=== PATIENT | female | born 1985 | race Caucasian/White ===

== ENCOUNTER 2016-12-05 00:56 | Inpatient (IN) | payer OTHER ==
[2016-12-05 01:40] LABS: APPEARANCE,URINE SLIGHTLY-CLOUDY; BILIRUBIN,URINE NEGATIVE (NEGATIVE); GLUCOSE, URINE NEGATIVE (NEGATIVE); KETONES,URINE NEGATIVE (NEGATIVE); LEUKOCYTE ESTERASE,URINE NEGATIVE (NEGATIVE); NITRITE,URINE NEGATIVE (NEGATIVE); PROTEIN,URINE NEGATIVE (NEGATIVE); URINE SPECIFIC GRAVITY 1.009; UROBILINOGEN,URINE NEGATIVE mg/dL (<2.0)
[2016-12-05 01:59] LABS: URINE BARBITURATES SCREEN NEGATIVE; URINE METHADONE SCREEN NEGATIVE; URINE OPIATES LOW NEGATIVE; URINE PHENCYCLIDINE SCREEN NEGATIVE
[2016-12-05] MEDS ORDERED: RINGERS SOLUTION,LACTATED 1,000 ML IV PRN (02:11)
[2016-12-05] MEDS ORDERED: MISOPROSTOL 0.2 MG TABLET ONE (02:24)
[2016-12-05] MEDS ORDERED: LIDOCAINE 1% INJ-PF (10 MG/ML) 30 ML SDV ONE (02:24)
[2016-12-05] MEDS ORDERED: OXYTOCIN/NORMAL SALINE 20 UNIT/1,000 ML RTUINJ ONE (02:24)
[2016-12-05 03:34] LABS: ABSOLUTE BASOPHILS # (AUTO) 0.1 10^3/uL (0.0-0.2); ABSOLUTE EOSINOPHILS # (AUTO) 0.1 10^3/uL (0.0-0.6); ABSOLUTE LYMPHOCYTES (AUTO) 1.6 10^3/uL (0.5-4.7); ABSOLUTE MONOCYTES (AUTO) 0.6 10^3/uL (0.1-1.4); ABSOLUTE NEUT (AUTO) 10.3 10^3/uL (1.7-8.2); BASOPHILS % (AUTO) 0.4 % (0-2); EOSINOPHILS % (AUTO) 0.6 % (0-6); HEMATOCRIT 32.2 % (36.0-47.0); HEMOGLOBIN 10.8 g/dL (12.0-15.5); HGB HCT DIFFERENCE 0.2; LYMPHOCYTES % (AUTO) 12.9 % (13-45); MEAN CORPUSCULAR HGB CONC 33.5 g/dL (32.0-36.0); MEAN CORPUSCULAR VOLUME 89 fl (80-97); MONOCYTES % (AUTO) 4.7 % (3-13); RED CELL DISTRIBUTION WIDTH 13.3 % (11.5-14.0); SEGMENTED NEUTROPHILS % (AUTO) 81.4 % (42-78); WHITE BLOOD COUNT 12.7 10^3/uL (4.0-10.5)
--- NOTE | 2016-12-05 03:48 | Delivery Summary ---
Del Sum A-C Datetime Report Generated by CPN: 12/05/2016 03:47 DELIVERY PERSONNEL DELIVERY PERSONNEL: [id number] Delivery Doctor:: Twin Morfin DO Labor and Delivery Nurse:: Sia Peters RNpropulsion systems engineer Nurse:: Olena Hussein RN Field Project Manager:: Kelley Parisi RN Nursery Nurse:: Jhoana Elaine RN Nursery Nurse:: Reshma Garcia RN MSN Furniture Repair Technician/MEDICAL RADIATION THERAPIST: Helen Vines CNA Additional Personnel: : Yamila Baires RN MATERNAL INFORMATION Delivery Anesthesia: None Medications After Delivery: Pitocin Drip 20 Units/1000ml NSS Estimated Blood Loss (ml): 150 Maternal Complications: Precipitous Labor (<3hrs) Provider Comments: of viable female infant in OA position Placenta delievered spontaneous and intact with 3v cord, short cord approx 11 inches Fundus firm LABOR SUMMARY EDC: 01/16/2017 00:00 No. Babies in Womb: 1 Attempted: No Labor Anesthesia: None LABOR INFORMATION Reason for Induction: Not Applicable Onset of Labor: 12/04/2016 23:30 Complete Dilatation: 12/05/2016 02:17 Oxytocin: N/A Group B Beta Strep: Unknown Antibiotics # of Doses: 0 Steroids Given: None Reason Steroids Not Administered: Not Applicable MEMBRANES Membranes Rupture Method: Artificial Rupture of Membranes: 12/05/2016 02:28 Length of Rupture (hr): 0.22 Amniotic Fluid Color: Clear Amniotic Fluid Amount: Small Amniotic Fluid Odor: None STAGES OF LABOR Stage 1 hr: 2 Stage 1 min: 47 Stage 2 hr: 0 Stage 2 min: 24 Stage 3 hr: 0 Stage 3 min: 5 Total Time in Labor hr: 3 Total Time in Labor min: 16 VAGINAL DELIVERY Episiotomy: None Laceration Extension: First Degree Laceration Type: Perineal Laceration Repair: Yes Laceration Repair Note: Repaired with 2-0 chromic in usual fashion with good hemostasis Sponge Count Correct: N/A Sharps Count Correct: N/A CSECTION DELIVERY Primary Indication: N/A Secondary Indication: N/A CSection Incidence: N/A Labor: N/A Elective: N/A CSection Incision: N/A BABY A INFORMATION Delivery Date/Time: 12/05/2016 02:41 Method of Delivery: Vaginal Born in Route : No : N/A Forceps: N/A Vacuum Extraction: N/A Shoulder Dystocia : No PRESENTATION/POSITION BABY A Presentation: Cephalic Cephalic Presentation: Vertex Vertex Position: Left Occipital Anterior Breech Presentation: N/A PLACENTA INFORMATION BABY A Placenta Delivery Time : 12/05/2016 02:46 Placenta Method of Delivery: Spontaneous Placenta Status: Delivered SCORES BABY A Heart Rate 1 min: >100 bpm Resp Effort 1 min: Good Cry Reflex Irritability 1 min: Cough or Sneeze or Pulls Away Muscle Tone 1 min: Active Motion Color 1 min: Blue/Pale Resuscitation Effort 1 min: N/A SCORE 1 MIN: 8 Heart Rate 5 min: >100 bpm Resp Effort 5 min: Good Cry Reflex Irritability 5 min: Cough or Sneeze or Pulls Away Muscle Tone 5 min: Active Motion Color 5 min: Body Hewitt, Extremities Blue Resuscitation Effort 5 min: N/A SCORE 5 MIN: 9 INFORMATION BABY A Gestational Age at Delivery: 34.0 Gestational Status: Late - 34- 36.6 Weeks Infant Outcome : Liveborn Infant Condition : Stable Sex: Female IDENTIFICATION BABY A Verification Date/Time: 12/05/2016 02:46 ID Band Number: [id number] Mother's Name Verified: Yes Infant RN Verifying : R Dayanna, RNC Additional Verifying Personnel: [facility], RN WEIGHT/LENGTH BABY A Infant Birthweight (gm): 1917 Infant Weight (lb): 4 Weight (oz): 4 Infant Length (in): 16.50 Infant Length (cm): 41.91 CORD INFORMATION BABY A No. Cord Vessels: 3 Nuchal Cord : N/A Cord Blood Taken: Yes-For Eval (Mom's Blood Type - or O+) ASSESSMENT BABY A Infant Complications: None Physical Findings at Delivery: Molding of the Head Infant Respirations: Appears Normal Skin to Skin: Yes Skin to Skin Time (min): 20 Desk Top Publisher/ALS Called : No Care By: Nick Garcia, LAUREEN _ Suraj Elaine RN Transferred To: Nursery BABY B INFORMATION : N/A SIGNATURES Signature: with User ID: [email or web address]
[2016-12-05] MEDS ORDERED: DIPH/PERTUSS(ACELL)/TETANUS VAC/PF 0.5 ML SYR (>=10YO) IM PRN (04:55)
[2016-12-05] MEDS ORDERED: NA PHOS,M-B/NA PHOS,DI-BA (ADULT) 133 ML ENEMA PR PRN (04:55)
[2016-12-05] MEDS ORDERED: DIBUCAINE 1% OINTMENT 28 GM TP PRN (04:55)
[2016-12-05] MEDS ORDERED: ACETAMINOPHEN WITH CODEINE #3 TABLET PO PRN (04:55)
[2016-12-05] MEDS ORDERED: PSEUDOEPHEDRINE HCL 30 MG TABLET PO PRN (04:55)
[2016-12-05] MEDS ORDERED: ACETAMINOPHEN 650 MG SUPP.RECT PR PRN (04:55)
[2016-12-05] MEDS ORDERED: BENZOCAINE/MENTHOL AEROSOL SPRAY 56 ML TOP PRN (04:55)
[2016-12-05] MEDS ORDERED: GLYCERIN/WITCH HAZEL LEAF 1 EACH MED..PAD TP PRN (04:55)
[2016-12-05] MEDS ORDERED: MEASLES,MUMPS&RUBELLA VACC/PF 0.5 ML VIAL SUBCUT PRN (04:55)
[2016-12-05] MEDS ORDERED: MAGNESIUM HYDROXIDE SUSP 30 ML UDCUP PO PRN (04:55)
[2016-12-05] MEDS ORDERED: PROMETHAZINE HCL 25 MG SUPP.RECT PR PRN (04:55)
[2016-12-05] MEDS ORDERED: ZOLPIDEM TARTRATE 5 MG TABLET PO PRN (04:55)
[2016-12-05] MEDS ORDERED: DIPHENHYDRAMINE HCL 25 MG CAPSULE PO PRN (04:55)
[2016-12-05] MEDS ORDERED: PROMETHAZINE HCL 25 MG TABLET PO PRN (04:55)
[2016-12-05] MEDS ORDERED: PROMETHAZINE HCL INJ 25 MG/1 ML VIAL IV PRN (04:55)
--- NOTE | 2016-12-05 05:16 | Admission Physical ---
Datetime Report Generated by CPN: 12/05/2016 05:16 CURRENT ADMISSION Chief Complaint: Uterine Contractions Indication for Induction: Not Applicable Admit Impression- Other: Hyperthyroidism Admit Plan: Admit to Unit; Initiate Labor Protocol ALLERGIES Medication Allergies: No Medication Allergies: Latex, Natural Rubber (12/05/2016) Medication Allergies: None Latex: Latex Allergies Food Allergies: N/A Environmental Allergies: N/A OBSTETRICAL HISTORY EDC: 01/16/2017 00:00 : 1 Para: 0 Term: 0 : 0 SAB: 0 IAB: 0 Ectopic: 0 Livin Cesareans: 0 VBACs: 0 Multiple Births: 0 Gestational Diabetes: No Rh Sensitization: No Incompetent Cervix: No FLORY: No Infertility: No ART Treatment: No Uterine Anomaly: No IUGR: No Hx Previous C/S: No Macrosomia: No Hx Loss/Stillborn: No PIH: No Hx : No Placenta Previa/Abruption: No Depression/PP Depression: No PTL/PROM: No Post Hemorrhage: No Current Procedures: Ultrasound Obstetrical History Comments: G1-Current SEE RECORDS Alcohol: No Marijuana : No Cocaine: No Other Illicit Drugs: No Cigarettes: Never Smoker. [id number] MEDICAL HISTORY Diabetes: No Blood Transfusion: No Pulmonary Disease (Asthma, TB): No Breast Disease: No Hypertension: No Correctional Officer Lieutenant Surgery: No Heart Disease: No Hosp/Surgery: Yes Autoimmune Disorder: No Anesthetic Complications: No Kidney Disease: No Abnormal Pap Smear: No Neuro/Epilepsy: No Psychiatric Disorders: No Other Medical Diseases: No Hepatitis/Liver Disease: No Significant Family History: No Varicosities/Phlebitis: No Trauma/Violence : No Thyroid Dysfunction: Yes Medical History Comments: Hyperthyroidism-taking Methimazole 5mg; Tonsilectomy; Breast reduction x 2. INFECTIOUS HISTORY Gonorrhea: No Genital Herpes: No Chlamydia: No Tuberculosis: No Syphilis: No Hepatitis: No HIV/AIDS Exposure: No Rash or Viral Illness: No HPV: No PHYSICAL EXAM General: Normal HEENT: Normal Neurologic: Normal Thyroid: Deferred Heart: Normal Lungs: Normal Breast: Deferred Back: Normal Abdomen: Normal Genitourinary Exam: Normal Extremities: Normal DTRs: Normal Pelvic Type: Adequate Vital Signs: Reviewed; Within Normal Limits VAGINAL EXAM Dilatation: 10 Effacement: 100 Station: 1 MEMBRANES Membranes: Intact FETUS A EGA: 34.0 Monitoring: External US FHR- Baseline: 140 Variability: Moderate 6-25bpm Accelerations: 15X15 Decelerations: None FHR Category: Category I Presentation: Vertex PLANS FOR LABOR AND DELIVERY Labor and Delivery: None Pain Management: Epidural Feeding Preference: Breast Benefit of Breast Feed Discussed: Yes Circumcision: N/A INFORMED CONSENT Signature: with User ID: [email or web address]
[2016-12-05] MEDS: IBUPROFEN 800 MG TABLET PO SCH ×3 (06:39→21:38)
[2016-12-05] MEDS: SENNOSIDES/DOCUSATE 8.6-50 MG 1 EACH TABLET PO SCH (09:25)
[2016-12-05] MEDS: FERROUS SULFATE 325 MG TABLET PO SCH ×2 (09:26→17:56)
[2016-12-05] MEDS: DOCUSATE SODIUM 100 MG CAPSULE PO SCH ×2 (09:26→17:56)
[2016-12-05] MEDS: PRENATAL VITAMIN W-O CA NO5/FE FUMARATE/FA CAPSULE PO SCH (09:26)
[2016-12-05] MEDS: FAMOTIDINE 20 MG TABLET PO SCH ×2 (09:26→21:38)
[2016-12-06] MEDS: ACETAMINOPHEN WITH CODEINE #3 TABLET PO PRN ×2 (04:19→22:51)
[2016-12-06] MEDS: IBUPROFEN 800 MG TABLET PO SCH ×3 (05:31→21:24)
[2016-12-06 08:40] LABS: HEMATOCRIT 34.1 % (36.0-47.0); HEMOGLOBIN 11.5 g/dL (12.0-15.5); HGB HCT DIFFERENCE 0.4; MEAN CORPUSCULAR HEMOGLOBIN 30.6 pg (27.0-33.4); MEAN CORPUSCULAR HGB CONC 33.8 g/dL (32.0-36.0); MEAN CORPUSCULAR VOLUME 91 fl (80-97); RED BLOOD COUNT 3.77 10^6/uL (3.72-5.28); RED CELL DISTRIBUTION WIDTH 13.1 % (11.5-14.0); WHITE BLOOD COUNT 13.8 10^3/uL (4.0-10.5)
[2016-12-06] MEDS: FAMOTIDINE 20 MG TABLET PO SCH ×2 (09:48→21:24)
[2016-12-06] MEDS: PRENATAL VITAMIN W-O CA NO5/FE FUMARATE/FA CAPSULE PO SCH (09:48)
[2016-12-06] MEDS: SENNOSIDES/DOCUSATE 8.6-50 MG 1 EACH TABLET PO SCH (09:48)
[2016-12-06] MEDS: DOCUSATE SODIUM 100 MG CAPSULE PO SCH ×2 (09:49→17:25)
[2016-12-06] MEDS: FERROUS SULFATE 325 MG TABLET PO SCH ×2 (09:49→17:25)
--- NOTE | 2016-12-06 10:04 | PDOC PROGRESS REPORT ---
Subjective-OB Subjective: Post Delivery Day: 1 29 year old. Denies any needs at this time, johnson in place until 1400, states lochia is stable, pain well controlled. Baby is doing well, working on pumping. Physical Exam (OB) Vital Signs: Temp Pulse Resp BP Pulse Ox 98.0 F 89 15 108/65 96 12/06/16 07:45 12/06/16 07:45 12/06/16 07:45 12/06/16 07:45 12/06/16 07:45 Intake & Output 12/05/16 12/06/16 12/07/16 06:59 06:59 06:59 Output Total 600 775 Balance -600 -775 Weight 83.85 kg - Lochia Lochia Amount: Moderate 25-50 ml Lochia Color: Rubra/Red - Abdomen Description: Soft, Round Hernia Present: No Fundal Description: Firm, Midline Fundal Height: u/u - u/2 Objective-Diagnostic Laboratory: 12/06/16 08:04 12/06/16 08:04 WBC 13.8 H RBC 3.77 Hgb 11.5 L Hct 34.1 L MCV 91 MCH 30.6 MCHC 33.8 RDW 13.1 Plt Count 184 Assessment and Plan(PN) - Assessment and Plan (1) Vaginal delivery Is this a current diagnosis for this admission?: YesPlan: routine pp care (2) Urinary retention Is this a current diagnosis for this admission?: YesPlan: johnson in plance until 1400 - Time Spent with Patient Time with patient: Less than 15 minutes Critical Time spent with patient: Less than 15 minutes Medications reviewed and adjusted accordingly: Yes - Disposition Anticipated Discharge: Home Within: within 48 hours
[2016-12-07] MEDS: IBUPROFEN 800 MG TABLET PO SCH ×2 (06:07→13:24)
[2016-12-07 09:01] VITALS: BP 105/71
--- NOTE | 2016-12-07 09:04 | PDOC DISCHARGE SUMMARY ---
Final Diagnosis Discharge Date: 12/07/16 - Final Diagnosis (1) Vaginal delivery Is this a current diagnosis for this admission?: Yes (2) Urinary retention Is this a current diagnosis for this admission?: Yes (3) Hyperthyroidism Is this a current diagnosis for this admission?: Yes Discharge Data - Discharge Medication Home Medications: Calcium Carbonate [Calcium] 1 tab PO DAILY 12/05/16 Methimazole [Northyx] 10 mg PO DAILY 12/05/16 Pps754/Iron Fumarate/FA/Dss [ 19 Tablet] 1 tab PO DAILY 12/05/16 Docusate Sodium [Colace 100 mg Capsule] 100 mg PO BID #60 capsule 12/07/16 Ibuprofen [Motrin 800 mg Tablet] 800 mg PO Q8 #60 tablet 12/07/16 Gestational Age: 34 Reason(s) for Admission: Onset of Labor Admission Note: gbs unknown Procedures: NST Intrapartum Procedure(s): Spontaneous Vaginal Delivery Complication(s): Laceration-Perineal Laceration-Degree: 1st - Diagnosis Test Laboratory: Temp Pulse Resp BP Pulse Ox 98.2 F 97 16 114/79 100 12/06/16 20:33 12/06/16 20:33 12/06/16 20:33 12/06/16 20:33 12/06/16 20:33 12/05/16 12/05/16 12/06/16 01:08 03:09 08:04 RBC 3.60 L 3.77 Hgb 10.8 L 11.5 L Hct 32.2 L 34.1 L Urine Opiates Screen NEGATIVE - Discharge information/Instructions Discharge Activity: Activity As Tolerated, Pelvic Rest, No tub bath Discharge Diet: Regular Disposition: HOME, SELF-CARE Follow up with: [facility] in: 4, Weeks
[2016-12-07] MEDS: DOCUSATE SODIUM 100 MG CAPSULE PO SCH (09:58)
[2016-12-07] MEDS: FERROUS SULFATE 325 MG TABLET PO SCH (09:58)
[2016-12-07] MEDS: PRENATAL VITAMIN W-O CA NO5/FE FUMARATE/FA CAPSULE PO SCH (09:58)
[2016-12-07] MEDS: FAMOTIDINE 20 MG TABLET PO SCH (09:59)
[2016-12-07] MEDS: SENNOSIDES/DOCUSATE 8.6-50 MG 1 EACH TABLET PO SCH (09:59)
== END 2016-12-07 14:15 | disposition home or self-care (01) | DRG 775 ==
LOC: LC 00:56 → LR 02:25 → 2S 05:15
PROVIDERS: ADMIT Obstetrics & Gynecology; ATTEND Obstetrics & Gynecology
PROC: 10E0XZZ Delivery of Products of Conception, External Approach (ICD-10-PCS; principal; 2016-12-05)
PROC: 0HQ9XZZ Repair Perineum Skin, External Approach (ICD-10-PCS; 2016-12-05)
PROC: 4A1HXCZ Monitoring of Products of Conception, Cardiac Rate, External Approach (ICD-10-PCS; 2016-12-05)
DX: O60.14X0 Preterm labor third trimester with preterm delivery third trimester, not applicable or unspecified (principal); O69.3XX0 Labor and delivery complicated by short cord, not applicable or unspecified; O62.3 Precipitate labor; O99.284 Endocrine, nutritional and metabolic diseases complicating childbirth; E05.90 Thyrotoxicosis, unspecified without thyrotoxic crisis or storm; O70.0 First degree perineal laceration during delivery; Z3A.34 34 weeks gestation of pregnancy; Z37.0 Single live birth; R33.8 Other retention of urine; Z91.040 Latex allergy status; Z79.899 Other long term (current) drug therapy
CPT/HCPCS: 36415; 80307; 81001; 85025; 85027; 86592; 86850; 86900; 86901; 88307; J2590; J3490; Q0114

== ENCOUNTER 2018-01-07 23:10 | Emergency (ER) | payer OTHER ==
[2018-01-08 00:05] LABS: ABSOLUTE BASOPHILS # (AUTO) 0.1 10^3/uL (0.0-0.2); ABSOLUTE EOSINOPHILS # (AUTO) 0.3 10^3/uL (0.0-0.6); ABSOLUTE LYMPHOCYTES (AUTO) 2.9 10^3/uL (0.5-4.7); ABSOLUTE MONOCYTES (AUTO) 0.6 10^3/uL (0.1-1.4); ABSOLUTE NEUT (AUTO) 6.1 10^3/uL (1.7-8.2); BASOPHILS % (AUTO) 0.8 % (0-2); EOSINOPHILS % (AUTO) 2.7 % (0-6); HEMATOCRIT 35.7 % (36.0-47.0); HEMOGLOBIN 12.4 g/dL (12.0-15.5); LYMPHOCYTES % (AUTO) 28.9 % (13-45); MEAN CORPUSCULAR HEMOGLOBIN 29.5 pg (27.0-33.4); MEAN CORPUSCULAR HGB CONC 34.7 g/dL (32.0-36.0); MEAN CORPUSCULAR VOLUME 85 fl (80-97); MONOCYTES % (AUTO) 6.4 % (3-13); PLATELET COUNT 201 10^3/uL (150-450); RED CELL DISTRIBUTION WIDTH 12.7 % (11.5-14.0); SEGMENTED NEUTROPHILS % (AUTO) 61.2 % (42-78); TOTAL CELLS COUNTED % (AUTO) 100 %; WHITE BLOOD COUNT 10.1 10^3/uL (4.0-10.5)
[2018-01-08 00:13] LABS: AMORPHOUS SEDIMENT,URINE TRACE /HPF; APPEARANCE,URINE CLOUDY; BILIRUBIN,URINE NEGATIVE (NEGATIVE); COLOR,URINE YELLOW; GLUCOSE, URINE NEGATIVE (NEGATIVE); KETONES,URINE NEGATIVE (NEGATIVE); LEUKOCYTE ESTERASE,URINE NEGATIVE (NEGATIVE); NITRITE,URINE NEGATIVE (NEGATIVE); PROTEIN,URINE NEGATIVE (NEGATIVE); URINE SPECIFIC GRAVITY 1.019; UROBILINOGEN,URINE NEGATIVE mg/dL (<2.0)
[2018-01-08 00:20] LABS: ALANINE AMINOTRANSFERASE 20 U/L (9-52); ALBUMIN 3.9 g/dL (3.5-5.0); ALKALINE PHOSPHATASE 60 U/L (38-126); ANION GAP 11 (5-19); ASPARTATE AMINO TRANSFERASE 17 U/L (14-36); BILIRUBIN,DIRECT 0.3 mg/dL (0.0-0.4); BILIRUBIN,TOTAL 0.3 mg/dL (0.2-1.3); BLOOD UREA NITROGEN 15 mg/dL (7-20); CALCIUM 10.2 mg/dL (8.4-10.2); CARBON DIOXIDE 26 mmol/L (22-30); CHLORIDE 104 mmol/L (98-107); GLUCOSE 91 mg/dL (75-110); LIPASE 128.9 U/L (23-300); POTASSIUM 4.6 mmol/L (3.6-5.0); SODIUM 140.6 mmol/L (137-145); TOTAL PROTEIN 6.9 g/dL (6.3-8.2)
--- NOTE | 2018-01-08 02:52 | ER Document Report ---
ED General - General Chief Complaint: Vag Bleeding, +preg <12wks Stated Complaint: VAGINAL BLEEDING Time Seen by Provider: 01/07/18 23:34 TRAVEL OUTSIDE OF THE [place] IN LAST 30 DAYS: No - HPI Patient complains to provider of: Vaginal bleeding Notes: Patient is approximate 14 weeks coming in for vaginal bleeding. Patient states started earlier tonight when she was trying of the bed bright red blood blood with some mild clots. Patient denies any recent sexual intercourse denies any Positive toys inside the vagina recently. Patient resting healthy upon my evaluation denies any abdominal pain or vaginal discharge. Patient is a states no comp occasions during first so for the child was born 6 weeks early patient does follow-up with [facility] here in town and has had care prior to his visit - Related Data Allergies/Adverse Reactions: Latex, Natural Rubber Allergy (Verified 12/05/16 02:34) Past Medical History - Social History Smoking Status: Unknown if Ever Smoked Family History: Reviewed & Not Pertinent Patient has suicidal ideation: No Patient has homicidal ideation: No Renal/ Medical History: Denies: Hx Peritoneal Dialysis Review of Systems - Review of Systems Constitutional: No symptoms reported EENT: No symptoms reported Cardiovascular: No symptoms reported Respiratory: No symptoms reported Gastrointestinal: No symptoms reported Genitourinary: No symptoms reported Female Genitourinary: , Vaginal bleeding Musculoskeletal: No symptoms reported Skin: No symptoms reported Hematologic/Lymphatic: No symptoms reported Neurological/Psychological: No symptoms reported -: Yes All other systems reviewed and negative Physical Exam - Vital signs Vitals: Temp Pulse Resp BP Pulse Ox 98.9 F 96 18 125/84 98 01/07/18 23:16 01/07/18 23:16 01/07/18 23:16 01/07/18 23:16 01/07/18 23:16 Interpretation: Normal - General General appearance: Appears well, Alert - HEENT Head: Normocephalic, Atraumatic Eyes: Normal Pupils: PERRL - Respiratory Respiratory status: No respiratory distress Chest status: Nontender Breath sounds: Normal Chest palpation: Normal - Cardiovascular Rhythm: Regular Heart sounds: Normal auscultation Murmur: No - Abdominal Inspection: Normal Distension: No distension Bowel sounds: Normal Tenderness: Nontender Organomegaly: No organomegaly - Back Back: Normal, Nontender - Extremities General upper extremity: Normal inspection, Nontender, Normal color, Normal ROM , Normal temperature General lower extremity: Normal inspection, Nontender, Normal color, Normal ROM , Normal temperature, Normal weight bearing. No: Forrest's sign - Neurological Neuro grossly intact: Yes Cognition: Normal Orientation: AAOx4 Sofy Coma Scale Eye Opening: Spontaneous [place] Coma Scale Verbal: Oriented Sofy Coma Scale Motor: Obeys Commands Sofy Coma Scale Total: 15 Speech: Normal Motor strength normal: LUE, RUE, LLE, RLE Sensory: Normal - Psychological Associated symptoms: Normal affect, Normal mood - Skin Skin Temperature: Warm Skin Moisture: Dry Skin Color: Normal Course - Re-evaluation Re-evalutation: 01/08/18 02:52 Patient seen for vaginal bleeding. Currently pending ultrasound. She has a positive not require RhoGam - Vital Signs Vital signs: Temp Pulse Resp BP Pulse Ox 98.9 F 96 18 125/84 98 01/07/18 23:16 01/07/18 23:16 01/07/18 23:16 01/07/18 23:16 01/07/18 23:16 - Laboratory Result Diagrams: 01/07/18 23:55 01/07/18 23:55 Laboratory results interpreted by me: 01/07/18 01/07/18 01/07/18 23:55 23:55 23:55 Hct 35.7 L Beta HCG, Quant 36562.00 H Urine Blood MODERATE H Discharge - Discharge Clinical Impression: Vaginal bleeding during Instructions: Bleeding During Early ([facility]) Additional Instructions: Your ultrasound today does not show any complications or any other clear etiologies for the vaginal bleeding that you experienced today. Would recommend following up with your [facility] CONSULTANT please call them tomorrow. Please do not perform any strenuous activity. Please observe pelvic rest. Nothing inside the vagina including no tampons no toys and no sex. Return to ER for any other concerning issues
--- NOTE | 2018-01-08 03:01 | RADIOLOGY REPORT (SQ) ---
EXAM DESCRIPTION: US GREATER THAN 14 WEEKS COMPLETED DATE/TME: 01/08/2018 00:02 CLINICAL HISTORY: 32 years Female, + preg bleeding Comparison: None. TECHNIQUE: Transvaginal. LIMITATIONS: None. FINDINGS: EGA is 15w1d with ALFIE of 07/01/18 based on sonographic biometrics EFW : not calculated Cardiac activity: 155-bpm. LVP: 4.4-cm Placenta: Anterior. No evidence of abruption. No placenta previa. Presentation: Breech Cervical length: 2.2-cm Transient posterior uterine contraction or submucosal fibroid. Anatomic survey: Cord insertion, urinary bladder, stomach, and upper-partial lower extremities visualized. Remaining anatomic survey limited due to early gestational age. IMPRESSION: Live fetus at 15w1d. Transient posterior uterine contraction or submucosal fibroid.
[2018-01-08 03:27] VITALS: BP 113/64
== END 2018-01-08 03:27 | disposition home or self-care (01) ==
LOC: ER 23:10
DX: O20.9 Hemorrhage in early pregnancy, unspecified (principal); Z3A.15 15 weeks gestation of pregnancy; Z91.040 Latex allergy status
CPT/HCPCS: 36415; 76805; 80053; 81001; 83690; 84702; 85025; 86900; 86901; 99284